=== PATIENT | female | born 2000 | race Caucasian/White ===

== ENCOUNTER → 2023-11-23 | Day surgery (SDC) | payer OTHER ==
[~2023-11-23] MED LIST: Albuterol 2.5 MG (3 mL) NEB NEB PRN; Methacholine Chloride KIT IH SCH; Sodium Chloride For Inhalation 0.9% 3 ML NEB NEB SCH
== END ==
LOC: CSHCP 13:23
PROVIDERS: ATTEND Internal Medicine Critical Care Medicine
DX: J45.909 Unspecified asthma, uncomplicated (principal)
CPT/HCPCS: 94060; 94070; 94760; J7611; J7674